=== PATIENT | female | born 1990 | race Caucasian/White ===

== ENCOUNTER 2024-06-14 00:59 | Inpatient (IN) | payer OTHER, SELFPAY ==
[2024-06-14] VITALS (210 sets, daily range): BP systolic 102–152; BP diastolic 48–112; PULSE 89–136; RESP 16; TEMP 37.2–37.7; O2SAT 10–100; BMI 30.8
--- NOTE | 2024-06-14 00:59 | LDADM ---
This patient, Sheba Arredondo, was admitted to Labor/Delivery/Recovery 106 on 06/14/24 at 00:59. Plans for labor, pain management and were discussed with patient. Patient/family oriented to hospital policies and general routines including ID bracelet, bed and alarms, visiting hours, pain management, procedures, bathroom and other care routines, personal items, smoking policy, room service/diet and guest tray routines, infant security routines, and visiting hours. Patient/Family are encouraged to report perceived risks to care and to ask questions if they do not understand what they are told or what they should do. See OBIX for further documentation.
[2024-06-14] MEDS: AMPICILLIN 2 GM/NS 100 ML 2 GM/100 ML BAG IVPB (03:32)
[2024-06-14] MEDS: LACTATED RINGERS 1,000 ML 125 ML IV CONT ×2 (03:32→10:00)
[2024-06-14 03:47] LABS: Basophils Percent Auto 0.2 % (0.2-1.2); Eosinophils Absolute Auto 0.1 K/mm3 (0-0.3); Eosinophils Percent Auto 1.2 % (0-4.4); Hematocrit 35.1 % (37.0-47.0); Hemoglobin 11.5 g/dL (12.0-15.0); Immature Granulocyte Absolute 0.06 K/mm3 (0.00-0.031); Immature Granulocyte Percent A 0.7 % (0-0.5); Lymphocytes Absolute Auto 1.54 K/mm3 (0.9-3.2); Lymphocytes Percent Auto 18.4 % (18.3-44.2); Mean Corpuscular HGB Conc 32.8 g/dl (32-36); Mean Corpuscular Hemoglobin 30.8 pg (26-34); Mean Corpuscular Volume 94.1 fl (80-100); Mean Platelet Volume 10.9 fl (7.4-10.4); Monocytes Absolute Auto 0.7 K/mm3 (0.1-0.6); Monocytes Percent Auto 8.1 % (2.6-8.5); Neutrophils Percent Auto 71.4 % (45.5-73.1); Platelet Count Result 182 k/mm3 (150-375); Red Blood Count 3.73 M/mm3 (4.2-5.4); Red Cell Distribution Width 14.2 % (11.5-14.5); White Blood Count 8.4 K/mm3 (4.5-10.0)
[2024-06-14 04:11] LABS: Rapid Plasma Reagin Non-Reactive (NonReactive)
[2024-06-14 04:41] LABS: HIV 1/2 Ab P24 Ag Result Negative (Negative)
--- NOTE | 2024-06-14 06:12 | WPDANESEPP ---
Anes - Eval Pre Procedure Procedure: Labor Epidural Date/Time: 06/14/24 06:12 Surgeon: Shana Preop Diagnosis: Labor Pain Pre Op Diagnosis: Leaking fluid Patient Data Age: 33 Gender: F Height: 1.6 m Weight: 79 kg Last Vital Signs Temp 37.2 C 06/14/24 04:30 Pulse 100 06/14/24 05:45 BP 126/82 06/14/24 05:45 O2 Del Method Room Air 06/14/24 04:11 Allergies Allergy/AdvReac Type Severity Reaction Status Date / Time No Known Allergies Allergy Verified 06/10/24 14:25 Home Medications Medication Instructions Recorded Confirmed Type prenat.vits,amanda,axe-pvmv-kbexi 1 tablet 06/10/24 History Laboratory Tests 06/14/24 03:25 WBC 8.4 K/mm3 (4.5-10.0) RBC 3.73 L M/mm3 (4.2-5.4) Hgb 11.5 L g/dL (12.0-15.0) Hct 35.1 L % (37.0-47.0) MCV 94.1 fl (80-100) MCH 30.8 pg (26-34) MCHC 32.8 g/dl (32-36) RDW 14.2 % (11.5-14.5) Plt Count 182 k/mm3 (150-375) MPV 10.9 H fl (7.4-10.4) Immature Gran % (Auto) 0.7 H % (0-0.5) Neut % (Auto) 71.4 % (45.5-73.1) Lymph % (Auto) 18.4 % (18.3-44.2) [place] % (Auto) 8.1 % (2.6-8.5) Eos % (Auto) 1.2 % (0-4.4) Baso % (Auto) 0.2 % (0.2-1.2) Lymph # (Auto) 1.54 K/mm3 (0.9-3.2) [place] # (Auto) 0.7 H K/mm3 (0.1-0.6) Eos # (Auto) 0.1 K/mm3 (0-0.3) Baso # (Auto) 0.0 K/mm3 (0.0-0.1) Abs Immat Gran (auto) 0.06 H K/mm3 (0.00-0.031) Absolute Neuts (auto) 6.0 K/mm3 (1.3-6.7) Absolute Nucleated RBC 0.000 K/mm3 (0.0-0.012) Nucleated RBC % 0.0 % (0.0-0.2) RPR Non-reactive (NonReactive) HIV 1&2 Ab/P24 Ag 4thGn Negative (Negative) Blood Type O Positive Antibody Screen Negative : gestational age (CARMINA 06/29/24) HCG: positive Patient hx anesthesia problems: none Family hx anesthesia problems: none Results Review: All pre-operative results and documents have been reviewed as part of the pre-operative evaluation. [facility] Family History Family History Mother Liver cancer Social History Social History Smoking status: Never smoker Second hand tobacco smoke exposure: No Substance use: never Do You Feel Safe in your Home?: Yes Lack of Transportation: No Lack of Food: Never True Current Housing: I Have Housing Concerned About Future Housing: No Difficulty Paying Gas/Electric Bills: No Difficulty Paying for Meds: No Currently Unemployed: No Education: High School Diploma/GED Difficulty w/ Childcare or Family Care: No Spiritual care concerns: No Exam Day of Procedure 06/14/24 06:12 Patient weight: normal Heart: regular rate and rhythm Lungs: normal air movement Airway: Mallampati scale class II Neurological: alert and oriented
[2024-06-14] MEDS: AMPICILLIN 1 GM/NS 50 ML 1 GM/50 ML BAG IVPB (07:32)
--- NOTE | 2024-06-14 07:55 | WPDHPUPDATE1 ---
History and Physical Update Update Date/Time: 06/14/24 07:55 33-year-old multiparous female who presents at term with spontaneous rupture membranes. She is in early labor. We are going to augment with Pitocin. She has a reassuring heart tone tracing. Expectant management, possible epidural History and Physical has been reviewed, including an updated exam of the patient. There are NO changes in the patient's condition. Risks, benefits, and alternatives have been discussed and questions answered. Patient agrees to proceed with procedure.
[2024-06-14] MEDS: OXYTOCIN 30 UNITS/NS 500 ML 30 UNITS/500 ML BAG IV CONT (10:40)
[2024-06-14] MEDS: ACETAMINOPHEN 500 MG TABLET 1000 MG PO (12:34)
--- NOTE | 2024-06-14 15:50 | PM.OBPRVD ---
OB - Vaginal Delivery Note Procedure Delivery date: 06/14/24 Delivery augmentation: Pitocin Delivery monitor: External FHT and External Uterine Episiotomy description: None Laceration Description: Perineal - 2nd Degree Delivery repair: vicryl Specimen: No Quantitative Blood Loss (ml): 200 Complications: No immediate complications [place] Baby Date of : 06/14/24 Time of : 15:37 Gestational Age by Date: 37 Weight (pounds): 8 Weight (ounces): 2 score one minute: 8 score five minutes: 9
[2024-06-14] MEDS: OXYTOCIN 30 UNITS/NS 500 ML 30 UNITS/500 ML BAG 125 UNITS IV CONT (16:13)
[2024-06-14] MEDS: ACETAMINOPHEN 325 MG TABLET 650 MG PO (18:16)
[2024-06-14] MEDS: IBUPROFEN 600 MG TABLET PO (18:16)
[2024-06-15 01:40] VITALS: BP 112/70; PULSE 87; RESP 16; TEMP 37.2; O2SAT 100
[2024-06-15] MEDS: ACETAMINOPHEN 325 MG TABLET 650 MG PO ×2 (04:41→22:33)
[2024-06-15] MEDS: IBUPROFEN 600 MG TABLET PO ×3 (04:41→22:33)
[2024-06-15 06:05] LABS: Hematocrit 34.2 % (37.0-47.0); Hemoglobin 10.6 g/dL (12.0-15.0)
[2024-06-15 08:30] VITALS: BP 126/87; PULSE 73; RESP 18; TEMP 36.5; O2SAT 97
--- NOTE | 2024-06-15 08:30 | PM.OBPNVD ---
OB - PN: Subj Subjective Date/time seen: 06/15/24 08:30 Patient comments: no complaints, pain well controlled, incisional pain, tolerating diet and flatus present OB - PN: Obj Data Labs 06/15/24 04:36 Labs: Laboratory Results - last 24 hr 06/15/24 04:36 Hgb 10.6 L Hct 34.2 L OB - PN A/P Plan day: 1 Plan: routine care Comments: No problems, routine care Time Spent With Patient Time: Total time spent is greater than 50% in coordination of care (as documented) at patient's floor/unit and/or counseling patient: Exam Const: General: comfortable, no acute distress and alert Resp: Effort & Inspection: normal respiratory effort Auscultation: no crackles, no rales and no rhonchi Cardio: Rate: regular rate Heart sounds: no click, no murmurs and no rubs GI: Inspection: non-distended GI Palp: No Tenderness to palpation present (GI) Auscultation: normal bowel sounds Other: Incision - CDI Extrem: General: normal to inspection, no pedal edema and no calf tenderness
[2024-06-15] MEDS: MULTIVIT/MIN/PREN/FOL AC/IRON TABLET 1 TAB PO (09:29)
[2024-06-15 19:18] VITALS: BP 126/84; PULSE 64; RESP 18; TEMP 36.9
[2024-06-16 08:30] VITALS: BP 118/81; PULSE 83; RESP 20; TEMP 36.4; O2SAT 98
[2024-06-16] MEDS: MULTIVIT/MIN/PREN/FOL AC/IRON TABLET 1 TAB PO (09:43)
[2024-06-16] MEDS: IBUPROFEN 600 MG TABLET PO (09:43)
--- NOTE | 2024-06-16 10:45 | P.DS_ITS ---
DS: Admitting Diagnosis Discharge Date June 16, 2024 Admitting Diagnosis Term DS: Discharge Diagnosis Discharge Diagnosis (1) Post term , delivered: Code(s): O48.0 - Post-term Status: Acute OB - DS: Summary OB Procedures : None OB Procedures Intrapartum: Spontaneous Vag Delivery OB Procedures: : None Peripartum Data Laceration Description: Perineal - 2nd Degree Episiotomy description: None Time Spent with Patient Time attestation: Total time spent providing and/or coordinating discharge services: Discharge Plan Discharge Discharging Clinician: Kojo Saldana Patient Disposition: Home, Self-Care Activity: pelvic rest Diet: regular Patient Instructions: Antibiotic Form Stand Alone Forms: General Discharge Information Follow-up/Referrals: Kojo Saldana MD [Physician] - Discharge Medications: Continued #2 Tablet 1 tablet Date of admission: 06/14/24 00:59 Primary Care Provider: PHYSICIAN,CONTROLLER OPERATIONS AND HR MANAGER Admitting Provider: Kojo Saldana Attending physician on admission: Kojo Saldana Condition: Stable
--- NOTE | 2024-06-16 10:45 | PM.OBPNVD ---
OB - PN: Subj Subjective Date/time seen: 06/16/24 10:45 Patient comments: no complaints, pain well controlled and tolerating diet OB - PN: Obj Data Labs 06/15/24 04:36 OB - PN A/P Plan day: 2 Plan: routine care and discharge home Time Spent With Patient Time: Total time spent is greater than 50% in coordination of care (as documented) at patient's floor/unit and/or counseling patient: Exam Const: General: comfortable and no acute distress Resp: Effort & Inspection: normal respiratory effort Auscultation: no rales, no rhonchi and no wheezes Cardio: Rate: regular rate Heart sounds: no click, no murmurs and no rubs GI: GI Palp: Yes Soft to palpation and No Tenderness to palpation present (GI) Auscultation: normal bowel sounds Extrem: General: normal to inspection, no pedal edema and no calf tenderness
[2024-06-18 08:33] VITALS: BP 131/79; PULSE 60; RESP 18; TEMP 36.5; O2SAT 100
== END 2024-06-16 12:35 | disposition home or self-care (01) | DRG 560 ==
LOC: ANHLDR 01:20 → ANHOB2 18:11
PROVIDERS: Admitting Provider Obstetrics & Gynecology; Visit Provider Obstetrics & Gynecology
DX: O70.1 Second degree perineal laceration during delivery (principal); Z3A.37 37 weeks gestation of pregnancy; Z37.0 Single live birth
CPT/HCPCS: 36415; 85014; 85018; 85025; 86592; 86703; 86850; 86900; 86901; A9270; G0432; J0290; J2590; J2795; J7120

== ENCOUNTER 2025-04-26 08:06 | Emergency (ER) | payer OTHER, SELFPAY ==
--- NOTE | ~2025-04-26 | XR_ITS ---
XR chest 2V 04/26/2025 08:46 Indication: Cough Procedure: 2 view chest Comparison: No prior studies for comparison. Findings: There is significant thoracic dextroscoliosis. There is right basilar airspace disease, com patible with pneumonia. Heart size normal. No significant effusion, edema or pneumothorax. Impression: 1: Right basilar airspace disease, compatible with pneumonia. 2: Scoliosis. Reviewed, dictated and finalized at location B. Impression: 1: Right basilar airspace disease, compatible with pneumonia. 2: Scoliosis.
--- OUTSIDE RECORDS SUMMARY | 2025-04-26 08:08 | XMS_ITS | Clinical Summary ---
[facility] Address [address] [place]: Epic Prelude [place] [address] Care Team Providers Care Refrigeration Unit Repairer Name Role Phone Claudio Marion MD Primary Care Provider [phone] Allergies No known active allergies Medications No known medications Active Problems Problem Noted Date Diagnosed Date Patellar subluxation, left, initial encounter ASCUS of cervix with negativ e high risk HPV- 2017 scanned under media 04/13/2023 Kidney stone 09/30/2019 Immunizations Immunization Administration Dates Next Due (ACTHIB/HIBERIX)(2 MOS-5 YRS /6 WKS-4 YRS) HAEMOPHILUS INFLUENZAE TYPE B VACCINE (HIB), PRP-T CONJUGATE, 4 DOSE, 0.5 ML IM 10/14/1990 (IPOL)(6 WKS AND UP) POLIOVI DELFINO VACCINE, INACTIVATED (IPV), 3 DOSE, SUBCUT OR IM 03/03/1995,04/01/1991,04/16/1990,02/05 (M-M-R II/PRIORIX)(12 MO UP) MEASLES, MUMPS AND RUBELLA VIRUS VACCINE, 0.5 ML IM/SUBCUT 03/03/1995,01/30/1991 (RECOMBIVAX HB/ENGERIX-B)(0- 19 YRS) HEPATITIS B VACCINE 5 MCG/0.5 ML OR 10 MCG/0.5 ML PED OR ADOL 3 DOSE (PF), IM 10/27/2004,04/14/2004,02/25/2004 (TDVAX)(7 YRS UP) TETANUS AN D DIPHTHERIA TOXOIDS, ADSORBED (2 LF OF TETANUS TOXOID AND 2 LF OF DIPHTHERIA TOXOID), 0.5ML (PF), IM 10/27/2004 Diptheria, Tetanus Toxoids, And Whole Cell Pertussis Vaccine (DTP), for intramuscular use 03/03/1995,04/01/1991,06/20/1990,04/16,02/05/1990 Influenza Seasonal Unspecifi ed Formulation IM 08/01/2023,08/11/2022,08/11/2022 Family History Medical History Relation Name Comments No Known Problems Father Cancer Mother luis m arredondo liver cancer fr om drinking heavily Relation Name Status Comments Father Alive Maternal Grandfather Maternal Grandmother Alive Mother luis m arredondo Social History Tobacco Use Types Packs/Day Years Used Date Smoking Tobacco: Never Passive Smoke Exposure: Never Smokeless Tobacco: Never Tobacco Cessation:Counseling Given: Not Answered Alcohol Use Standard Drinks/Week Comments Not Currently 0 (1 standard drink = 0.6 oz pure alcohol) drink maybe once a month if that Comments No Sex and Gender Information Value Date Recorded Sex Assigned at Not on file Legal Sex Female 10:59 PM [employer] Gender Identity Not on file Sexual Orientation Not on file Last Filed Vital Signs Vital Sign Reading Time Taken Comments Blood Pressure 125/86 07/26/2023 3:37 PM CDT Pulse 71 07/26/2023 3:37 PM CDT Temperature 36.9 C (98.5 F) 06/05/2023 11:47 AM CDT Respiratory Rate 17 07/26/2023 3:37 PM CDT Oxygen Saturation 98% 06/05/2023 11:47 AM CDT Inhaled Oxygen Concentration - - Weight 68 kg (150 lb) 07/26/2023 3:37 PM CDT Height 160 cm (5' 3) 07/26/2023 3:37 PM CDT Body Mass Index 26.57 07/26/2023 3:37 PM CDT Plan of Treatment Health Maintenance Due Date Last Done Comments DTAP/TDAP/TD VACCINES (6 - Tdap) 10/28/2004 10/27/2004, 03/03/1995, 04/01/1991, Additional history exists HPV/Cotest (21-29) 2010 HPV/Cotest (30-65) 2019 INFLUENZA VACCINE (#1) 2024 , 08/11/2022, 08/11/2022 COVID-19 Vaccine (3 - season) 2024 05/27/2021, 04/28/2021 Preventative Visit- Commercial 11/13/2024 03/09/2023, 12/09/2022 CERVICAL CANCER SCREENING 11/15/2024 PAP SMEAR 11/15/2024 11/15/2021 (Prev iously completed) HEPATITIS B VACCINES Completed 10/27/2004, 04/14/2004, 02/25/2004 HPV VACCINES Aged Out No longer eligi ble based on patient's age to complete this topic Insurance [facility] EPO Care Teams Refrigeration Unit Repairer Relationship Specialty Start Date End Date Claudio Marion MD [address] [place] [id number] PCP - General Family Practice 12/09/22
--- OUTSIDE RECORDS SUMMARY | 2025-04-26 08:08 | XMS_ITS | Data Portability ---
Author Organization [place] [facility] [place] Address [address] [place] [address] Assessment No assessment recorded. Plan of Treatment Reminders Order Date Submit Date Provider Last Modified By Organization Details Last Modified Time Details Appointments MED CHECK 2024 10:30A M Jn SALDANA MD Not available Not available Not available Injection DEPO 2024 01:00P M RN SCHEDULE Not available Not available Not available Lab None recorded. Referral None recorded. Procedures None recorded. Surgeries None recorded. Imaging None recorded. Medication Orders lamotrigi ne 25 mg tablet 2024 025 [facility] #[id number], [address], [place], [id number], 04/18/2025 12:22:12 Depo-Prov era 150 mg/mL intramusc ular syringe 2024 025 [email or web address] Not available 03/25/2025 18:09:23 Lexapro 20 mg tablet 2024 025 [facility] #[id number], [address], [place], [id number], 04/18/2025 11:55:54 Lexapro 10 mg tablet 2024 025 [email or web address] [id number], [address], [place], [id number], 01/15/2025 16:17:12 Depo-Prov era 150 mg/mL intramusc ular suspensio n 2024 025 [email or web address] Not available 04/18/2025 11:55:42 Patient TargetsNo targets recorded. Patient InstructionsNo instructions recorded. Reason for Referral None Reported. Results Created Date Observation Date Name Description Value Unit Range Abnormal Flag Note LastModifiedBy Organization Detail LastModifiedTime 11/26/1911/26/2024 CBC W/DIF F WBC 7.4 10'3/ uL 3.5-10 .5 Not Available [facility] (Lab) [address], [place], [address], 11/27/2024 08:46:37 11/26/1911/26/2024 CBC W/DIF F RBC 4.85 10'6/ uL (based on docume nted legal sex) 3.80-5 .20 Not Available [facility] (Lab) [address], [place], [address], 11/27/2024 08:46:37 11/26/19 25 11/26/2024 CBC W/DIF F HGB 14.8 g/dL (based on docume nted legal sex) 11.6-1 5.4 Not Available [facility] (Lab) [address], [place], [address], 11/27/2024 08:46:37 11/26/1911/26/2024 CBC W/DIF F HCT 45.9 % (based on docume nted legal sex) 34.0-4 5.0 high Not Available [facility] (Lab) [address], [place], [address], 11/27/2024 08:46:37 11/26/1911/26/2024 CBC W/DIF F MCV 94.6 fL 80.0-9 9.0 Not Available [facility] (Lab) [address] [place], [address], 11/27/2024 08:46:37 11/26/19 25 11/26/2024 CBC W/DIF F MCH 30.5 pg 27.0-3 4.0 Not Available [facility] (Lab) [address], [place], [address], 11/27/2024 08:46:37 11/26/19 25 11/26/2024 CBC W/DIF F MCHC 32.2 g/dL 32.0-3 5.5 Not Available [facility] (Lab) [address], [place], [address], 11/27/2024 08:46:37 11/26/19 25 11/26/2024 CBC W/DIF F RDW 12.2 % 11.0-1 5.0 Not Available [facility] (Lab) [address], [place], [address], 11/27/2024 08:46:37 11/26/19 25 11/26/2024 CBC W/DIF F plt 230 10'3/ uL 150-40 0 Not Available [facility] (Lab) [address], [place], [address], 11/27/2024 08:46:37 11/26/19 25 11/26/2024 CBC W/DIF F MPV 12.4 fL 8.8-12 .1 high Not Available [facility] (Lab) [address], [place], [address], 11/27/2024 08:46:37 11/26/19 25 11/26/2024 CBC W/DIF F neutrophils 68.1 % 34.0-7 3.0 Not Available [facility] (Lab) [address], [place], [address], 11/27/2024 08:46:37 11/26/19 25 11/26/2024 CBC W/DIF F lymphocytes 22.7 % 15.0-5 0.0 Not Available [facility] (Lab) [address], [place], [address], 11/27/2024 08:46:37 11/26/19 25 11/26/2024 CBC W/DIF F monocytes 7.6 % 1.0-15 .0 Not Available [facility] (Lab) [address], [place], [address], 11/27/2024 08:46:37 11/26/19 25 11/26/2024 CBC W/DIF F eosinophils 0.8 % 0.0-8. 0 Not Available [facility] (Lab) [address], [place], [address], 11/27/2024 08:46:37 11/26/19 25 11/26/2024 CBC W/DIF F basophils 0.5 % 0.0-2. 0 Not Available [facility] (Lab) [address], [place], [address], 11/27/2024 08:46:37 11/26/19 25 11/26/2024 CBC W/DIF F immature granulocytes 0.3 % no define d refere nce range Immat ure Granu locyt es (IG) repre sents autom ated enume ratio n of Metam yeloc ytes, Myelo cytes and Promy elocy monica when IG is < 5%. Blast s are not inclu ded in IG and repor lily separ ately if prese nt. Not Available [facility] (Lab) [address], [place], [address], 11/27/2024 08:46:37 11/26/1911/26/2024 CBC W/DIF F absolute neutrophils 5.0 10'3/ uL 1.5-8. 0 Not Available [facility] (Lab) [address], [place], [address], 11/27/2024 08:46:37 11/26/19 25 11/26/2024 CBC W/DIF F absolute lymphocytes 1.7 10'3/ uL 1.0-4. 0 Not Available [facility] (Lab) [address], [place], [address], 11/27/2024 08:46:37 11/26/19 25 11/26/2024 CBC W/DIF F absolute monocytes 0.6 10'3/ uL 0.2-1. 0 Not Available [facility] (Lab) [address], [place], [address], 11/27/2024 08:46:37 11/26/19 25 11/26/2024 CBC W/DIF F absolute eosinophils 0.1 10'3/ uL 0.0-0. 6 Not Available [facility] (Lab) [address], [place], [address], 11/27/2024 08:46:37 11/26/19 25 11/26/2024 CBC W/DIF F absolute basophils 0.0 10'3/ uL 0.0-0. 3 Not Available [facility] (Lab) [address], [place], [address], 11/27/2024 08:46:37 11/26/1911/26/2024 CBC W/DIF F absolute immature granulocytes 0.0 10'3/ uL 0.00-0 .10 Refer ence range s for nonbi nary/ inter sex or unspe cifie d gende r patie nts have not been estab lishe d. Pleas e refer to the [facility] table for range s estab lishe d for cisge nder patie nts and evalu ate in the clini chris rhonda xt of the indiv idual patie nt: https ://bisi miranda book. nm.or g/Gen derX Not Available [facility] (Lab) [address], [place], [address], 11/27/2024 08:46:37 11/26/1911/26/2024 CMP(C OMPRE HENSI VE METAB OLIC PANEL ) sodium 139 mmol/ L 133-14 6 Not Available [facility] (Lab) [address], [place], [address], 11/27/2024 08:46:38 11/26/19 25 11/26/2024 CMP(C OMPRE HENSI VE METAB OLIC PANEL ) potassium 3.9 mmol/ L 3.5-5. 1 Not Available [facility] (Lab) [address], [place], [address], 11/27/2024 08:46:38 11/26/19 25 11/26/2024 CMP(C OMPRE HENSI VE METAB OLIC PANEL ) chloride 104 mmol/ L 98-107 Not Available [facility] (Lab) [address], [place], [address], 11/27/2024 08:46:38 11/26/19 25 11/26/2024 CMP(C OMPRE HENSI VE METAB OLIC PANEL ) carbon dioxide 26 mmol/ L 21-31 Not Available [facility] (Lab) [address], [place], [address], 11/27/2024 08:46:38 11/26/19 25 11/26/2024 CMP(C OMPRE HENSI VE METAB OLIC PANEL ) anion gap 9 mmol/ L 4-13 Not Available [facility] (Lab) [address], [place], [address], 11/27/2024 08:46:38 11/26/19 25 11/26/2024 CMP(C OMPRE HENSI VE METAB OLIC PANEL ) blood urea nitrogen 12 mg/dL 7-25 Not Available [facility] (Lab) [address], [place], [address], 11/27/2024 08:46:38 11/26/19 25 11/26/2024 CMP(C OMPRE HENSI VE METAB OLIC PANEL ) creatinine 0.74 mg/dL 0.60-1 .30 Not Available [facility] (Lab) [address], [place], [address], 11/27/2024 08:46:38 11/26/19 25 11/26/2024 CMP(C OMPRE HENSI VE METAB OLIC PANEL ) egfrcr (CKD-epi 2021) >90 mL/mi n/1.7 3_m2 >=60 Not Available [facility] (Lab) [address], [place], [address], 11/27/2024 08:46:38 11/26/19 25 11/26/2024 CMP(C OMPRE HENSI VE METAB OLIC PANEL ) calcium 9.9 mg/dL 8.3-10 .5 Not Available [facility] (Lab) [address], [place], [address], 11/27/2024 08:46:38 11/26/19 25 11/26/2024 CMP(C OMPRE HENSI VE METAB OLIC PANEL ) glucose 100 mg/dL 70-100 Not Available [facility] (Lab) [address], [place], [address], 11/27/2024 08:46:38 11/26/19 25 11/26/2024 CMP(C OMPRE HENSI VE METAB OLIC PANEL ) protein, total 7.2 g/dL 6.4-8. 3 Not Available [facility] (Lab) [address], [place], [address], 11/27/2024 08:46:38 11/26/19 25 11/26/2024 CMP(C OMPRE HENSI VE METAB OLIC PANEL ) albumin 4.8 g/dL 3.5-5. 0 Not Available [facility] (Lab) [address], [place], [address], 11/27/2024 08:46:38 11/26/19 25 11/26/2024 CMP(C OMPRE HENSI VE METAB OLIC PANEL ) ALT 26 units /L 9-43 Not Available [facility] (Lab) [address] [place], [address], 11/27/2024 08:46:38 11/26/19 25 11/26/2024 CMP(C OMPRE HENSI VE METAB OLIC PANEL ) alkaline phosphatase 82 units /L 34-104 Not Available [facility] (Lab) [address], [place], [address], 11/27/2024 08:46:38 11/26/19 25 11/26/2024 CMP(C OMPRE HENSI VE METAB OLIC PANEL ) AST 13 units /L 13-39 Not Available [facility] (Lab) [address], [place], [address], 11/27/2024 08:46:38 11/26/19 25 11/26/2024 CMP(C OMPRE HENSI VE METAB OLIC PANEL ) bilirubin, total 1.1 mg/dL 0.2-1. 2 Not Available [facility] (Lab) [address], [place], [address], 11/27/2024 08:46:38 11/26/19 25 11/26/2024 LIPID PANEL ,AMA (LDL- CALC) total cholesterol 175 mg/dL 0-199 Not Available [facility] (Lab) [address], [place], [address], 11/27/2024 08:46:38 11/26/1911/26/2024 LIPID PANEL ,AMA (LDL- CALC) triglyceride s 51 mg/dL 0-150 NCEP Refer ence Value s for Trigl yceri amanda: Candida l: <150 mg/dL Borde rline High: 150 - 199 mg/dL High: 200 - 499 mg/dL Very High: >/= 500 mg/dL Not Available [facility] (Lab) [address], [place], [address], 11/27/2024 08:46:38 11/26/1911/26/2024 LIPID PANEL ,AMA (LDL- CALC) HDL cholesterol 52 mg/dL >40 Not Available [facility] (Lab) [address] [place], [address], 11/27/2024 08:46:38 11/26/19 25 11/26/2024 LIPID PANEL ,AMA (LDL- CALC) LDL cholesterol 110 mg/dL 0-99 high Cutof f value s recom rosario d by the Natio nal Diamante stero l Educa tion Progr am: SCOTT ABLE: Diamante stero l <200 mg/dL LDL <100 mg/dL BORDE RLINE : Diamante stero l 200-2 39 mg/dL LDL 101-1 59 mg/dL HIGHE R RISK: Diamante stero l >240 mg/dL LDL >160 mg/dL , HDL <40 mg/dL Not Available [facility] (Lab) [address], [place], [address], 11/27/2024 08:46:38 11/26/1911/26/2024 LIPID PANEL ,AMA (LDL- CALC) non-HDL cholesterol 123 mg/dL no refere nce range A reaso nable goal for non-H DL diamante stero l is one that is 30 mg/dL highe r than the LDL diamante stero l goal. Not Available [facility] (Lab) [address], [place], [address], 11/27/2024 08:46:38 11/26/1911/26/2024 LIPID PANEL ,AMA (LDL- CALC) chol/HDL ratio 3.4 . 0.0-5. 0 On March 07, 2023, [facility] labor atori es frank ed the equat ion for calcu latin g estim ated low-d ensit y lipop rotei n-cho leste rol (LDL- C) from the Ashleigh kebede equat ion to the Betty ashley/Bebeto dumont equat ion. This new equat ion is only valid for lipid panel s with trigl yceri amanda < 400 mg/dL . Studi es have demon strat ed that this new equat ion will impro ve the accur acy of LDL-C , espec ially in scena venegas when LDL-C redd ntrat ions are relat ively low (< 100 mg/dL ), trigl yceri amanda are eleva lily, or patie nt is non-f astin g. Refer ences : - Gavin Kirk, Jadon Quinones , Tho moore, Marcos Aparicio, Marcos murillo, Sina rendon , and Cesar Parikh . 2013. Comp ariso n of a Novel Metho d vs the Fried delio Equat ion for Estim ating Low-D ensit y Lipop rotei n Diamante stero l Level s from the Stand raza Lipid Profi le. RUFINO: The Journ al of the Ameri can Medic al Assoc iatio n 310 (19): 2060- . - Dexter vidal V, Tamar J, Bird ar A, Cathy M, Katty marrero R, Wood ar E, Nahomi rendon RS, Jl SR, Betty ashley SS. Fast ing Versu s Nonfa sting and Low-D ensit y Lipop rotei n Diamante stero l Accur acy. Circu latio n. 2017Nov 14;137 (1):1 0-19. Not Available [facility] (Lab) [address], [place], [address], 11/27/2024 08:46:38 11/26/19 25 11/26/2024 TSH, REFLE X FREE T4 TSH 1.92 uIU/m L 0.30-5 .33 Not Available [facility] (Lab) [address] , [place], [address], 11/27/2024 08:46:39 11/26/19 25 11/26/2024 VITAM IN D, 25-OH (TOTA L D2/D3 ) vitamin D, 25-hydroxy, total 24.4 NG/mL 30.0-1 00.0 low Sugge stive of Defic iency : <20 ng/mL Sugge stive of Insuf ficie ncy: 20-29 ng/mL Sugge stive of Suffi cienc y: 30-10 0 ng/mL Sugge stive of Toxic ity: >150 ng/mL Not Available [facility] (Lab) [address] , [place], [address], 11/27/2024 08:46:39 11/26/19 25 11/26/2024 IMAGE GUIDE D PAP AND HPV REGAR DLESS image guided Pap, HPV regardless of Pap result SEE RESULT S BELOW CASE REPOR T: Cytol ogy Gynec ologi chris Repor t Case: [id number] Autho shikha evans Provi lakisha: Kamilah Saldana MD Colle cted: 11/26 1026 Order ing Locat ion: [place] [facility] Recei erica: 11/27 0123 First Scree n: Susan Fan, CT Rescr een: Chela Parikh, CT Speci men: Justen ingram Pap - Image d, Cervi x STATE MENT OF ADEQU ACY: Satis facto ry for evalu ation Trans forma tion zone compo nent prese nt ----- ----- ----- ----- ----- ----- ----- ----- ----- ----- ----- ----- ----- ----- ----- ----- ----- ---- FINAL DIAGN OSIS: Negat savage for Intra epith elial Leslauren ashley or Jadyn luis (NIL) . Elect samson mathews d by Chela Parikh , CT on 2024 at 1256 HEATING ME[employer]IC ----- ----- ----- ----- ----- ----- ----- ----- ----- ----- ----- ----- ----- ----- ----- ----- ----- ---- HPV RESUL TS: HPV mRNA E6/E7 : No HPV mRNA Detec lily NOTE: This high risk HPV mRNA assay detec ts fourt een high- risk HPV types (16, 18, 31, 33, 35, 39, 45, 51, 52, 56, 58, 59, 66, 68) witho ut diffe renti ation . COMME NT: This speci men was revie wed by a Cytot echno logis t and/o r Patho logis t (as indic ated in this repor t) after evalu ation using the Thinp rep Imagi ng Syste m. CLINI CHRIS INFOR MATIO N: Menst rual Statu s: LMP (if appli cable ): Clini chris Histo ry/Pr eviou s Pap: Type of Neopl juliet (if appli cable ): Signi fican t Clini chris Findi ngs: Other Histo ry: Hormo katya (if appli cable ): PAP EDUCA ULISES L NOTE: The Pap Test is a scree juan jose test with an inher ent false negat savage rate. Liqui d-bas ed sampl ing may decre ase, but will not elimi tramaine, false negat savage resul ts. A negat savage resul t does not precl ude the prese nce and/o r devel opmen t of disea se, since the prese nce of abnor mal cells in the sampl e depen ds on the locat ion of the lesio n and sampl ing techn ique. Sandeep nued regul ar scree juan jose is the best metho d of cance r preve ntion . If repor lily cytol ogic findi ng do not corre late with physi chris and/o r histo rical findi ngs, furth er inves tigat ion is recom rosario d, as clini marine solares nted. Not Available [facility] (Lab) [address], [place], [address], 12/03/2024 14:00:04 Result Notes None recorded. Problems Name Problem SNOMED Code Status Onset Date Resolution Date Notes Provider Name and Address Organization Details Recorded Time Pregnanc y 88130107 Completed 202306/17/2024 Tomer Ulrich [facility] 4 12:38:31 Large for gestatio n age fetus [id number] Completed predicte d 9 lb at 39 weeks Moni Stein [facility] 19:38:39 Problem Notes None recorded. Procedures Surgical History Date Name Laterality Status Provider Name and Address Organization Details Recorded Time 11/26/2024 Date of Last Pap Smear completed Opal Bertin [facility] 04/18/2025 11:58:26 Imaging Results None recorded. Procedure Notes None recorded. Medical Equipment None Reported. Allergies No known drug allergies Medications Name Sig Start Date Stop Date Status Note LastModified by Organization Details LastModified Time ofloxacin 0.3 % eye drops INSTILL 2 DROPS INTO BOTH EYES FOUR TIMES DAILY FOR 7 DAYS FOR INFECTIOU S PROCESS 03/25 completed Not Available Not Available Not Available fluconazole 150 mg tablet TAKE 1 TABLET BY MOUTH FOR 1 DAY DIRECTED 05/10 completed Not Available Not Available Not Available lamotrigine 25 mg tablet Take 2 tablets twice a day by oral route. 2024 active Not Available Not Available Not Avai lable amoxicillin 875 mg tablet TAKE 1 TABLET BY MOUTH EVERY 12 HOURS FOR 10 DAYS 05/10 completed Not Available Not Available Not Available Depo-Lung Splitter a 150 mg/mL intramuscul ar suspension Inject 1 mL every 3 months by intramusc ular route. 04/18 completed Not Available Not Available Not Available Depo-Lung Splitter a 150 mg/mL intramuscul ar syringe Inject 1 mL every 3 months by intramusc ular route. 2024 active Not Available Not Available Not Avai lable escitalopra m 10 mg tablet TAKE 1 TABLET BY MOUTH EVERY DAY active Not Available Not Available No t Available escitalopra m 20 mg tablet TAKE 1 TABLET BY MOUTH EVERY DAY 04/18 completed Not Available Not Available Not Available Vitamin active Not Available Not Available Not Available Vitamin D2 active Not Available Not Av ailable Not Available Vitals Date Recorded Body height Body mass index (BMI) Body weight Systolic blood pressure Diastolic blood pressure Provider Name and Address Organization Details Last Updated DateTime 12/27/2024 160.02 cm 25.9 kg/m2 50998.49 g 134 mm[Hg] 84 mm[Hg] ELIZABETH Dominguez [facility] 15:32:48 Date Recorded Body height Body mass index (BMI) Body weight Systolic blood pressure Diastolic blood pressure Provider Name and Address Organization Details Last Updated DateTime 01/15/2025 160.02 cm 26 kg/m2 71143.36 g 144 mm[Hg] 88 mm[Hg] Lorraine Ruano [facility] 5 15:43:28 Date Recorded Body height Body mass index (BMI) Body weight Systolic blood pressure Diastolic blood pressure Provider Name and Address Organization Details Last Updated DateTime 03/04/2025 160.02 cm 25.2 kg/m2 99505.12 g 126 mm[Hg] 84 mm[Hg] Opal [facility] 5 13:13:51 Date Recorded Body height Body mass index (BMI) Body weight Systolic blood pressure Diastolic blood pressure Provider Name and Address Organization Details Last Updated DateTime 03/24/2025 160.02 cm 25.7 kg/m2 43573.89 g 122 mm[Hg] 85 mm[Hg] Opal [facility] 5 15:12:16 Date Recorded Body height Body mass index (BMI) Body weight Systolic blood pressure Diastolic blood pressure Provider Name and Address Organization Details Last Updated DateTime 04/18/2025 160.02 cm 25.7 kg/m2 16464.89 g 131 mm[Hg] 85 mm[Hg] [facility] 5 11:55:34 Social History Question Answer Notes LastModified by Organizat ion Details LastModified Time Tobacco Smoking Status Never Smoker [facility] 11/16/2023 12:11:29 How Many Years Have You Consumed Alcohol? 8 Information not available 11/16/2023 Are You Blind Or Do You Have Difficulty Seeing? No Information n ot available 11/16/2023 What Is Your Level Of Caffeine Consumption? Occasional Information not available 11/16/2023 How Much Tobacco Do You Chew? None Information not available 11/16/2023 In The 14 Days Before Symptom Onset, Have You Had Close Contact With A Laboratory-confirm ed COVID-19 While That Case Was Ill? No Information n ot available 11/16/2023 In The 14 Days Before Symptom Onset, Have You Had Close Contact With A Person Who Is Under Investigation For COVID-19 While That Person Was Ill? No Information not available 11/16/2023 Have You Been To An Area Known To Be High Risk For COVID-19? No Information not available 11/16/2023 Are You Deaf Or Do You Have Serious Difficulty Hearing? No Information not available 11/16/2023 What Type Of Diet Are You Following? REGULAR Information n ot available 03/25/2024 What Is The Highest Grade Or Level Of School You Have Completed Or The Highest Degree You Have Received? [id number] Information not available 11/16/2023 Are There Any Guns Present In Your Home? No Information not available 11/16/2023 Do You Use Protection During Sex? No Information not available 11/16/2023 Do You Use Your Seat Belt Or Car Seat Routinely? Yes Information not available 11/16/2023 Are You Sexually Active? Yes [email or web address] Information not available 03/25/2024 Do You Have Smoke And Carbon Monoxide Detectors In Your Home? Yes Information not available 11/16/2023 How Much Tobacco Do You Smoke? No Information not available 11/16/2023 Do You Use Sunscreen Routinely? Yes Information not available 11/16/2023 Have You Used IV Drugs? No Information not available 11/16/2023 Do You Have Difficulty Walking Or Climbing Stairs? No [email or web address] Information not available 03/25/2024 Sex: Unknown Functional Status Question Answer Note LastModified by Organizat ion Details LastModified Time Do you use any illicit or recreational drugs? No Information not available 11/16/2023 What is your level of alcohol consumption? None [email or web address] Information not available 03/25/2024 Are you currently employed? Yes [email or web address] Information not available 03/25/2024 Are you able to walk? [email or web address] Information not available 11/16/2023 Are you able to care for yourself? Yes Information not available 03/25/2024 What is your occupation? [employer] [email or web address] Information not available 03/25/2024 Do you have difficulty dressing or bathing? No [email or web address] Information not available 03/25/2024 What is your exercise level? Moderate Information not available 11/16/2023 Mental Status Question Answer Note LastModified by Organization D etails LastModified Time Do you feel stressed (tense, restless, nervous, or anxious, or unable to sleep at night)? [id number] Information not available 11/16/2023 Family History Relationship Description Onset Age of this Age Resolved Age Notes LastModified by Organization Details LastModified Time Mother Asthma Not available 11/16/2023 12:09:17 Mother Kidney disease Not available 2023 12:09:17 Medical History Condition Response Anxiety Disorder Y Depression/ depression Y No Past Medical History Y Gynecological History Statement/Question Response Abnormal Pap Y Date of LMP On BCP's at Conception? N N Was last menstrual period normal Y STIs/STDs N HPV Vaccine N Current Control Method Depo-Lung Splitter a Age at First Child 21 Date of control 12/28/2022 Are cycles usually normal Y Sexually Active? Y Menses Monthly N Age of first menstrual cycle 17 Date of Last Pap Smear 11/26/2024 Sexual Problems? N LMP Unknown N Obstetrics History GPAL:G 2 P 2 0 0 2 Type Value Full Term 2 Living 2 Total 2 Past Encounters Encounter ID Performer Location Encounter Start Date Encounter Closed Date Diagnosis/Indication Diagnosis SNOMED-CT Code Diagnosis ICD10 Code Diagnosis Note [id number] Kojo Saldana MD [facility] [address] [address] 11/16/2023 11:18:34 11/16/2023 11:48:25 screening [id number] Z36.87 Z3A.01 [id number] Kojo Saldana MD [facility] [address] [address] 11/16/2023 11:19:31 11/16/2023 13:05:44 Amenorrhea [id number] N91.2 Patient is a 32-year-ol d 2 para 1001 who presents for amenorrhea . She is a positive test and a ultrasound to rule 7 week gestation. She was examined. A Pap smear was performed. Was all normal. We talked about care. Talked about her ultrasound today. We talked about 12 week ultrasound . Talked about her obstetric, medical, surgical and social histories. She will return in 5 weeks to begin routine care. We spent over 20 minutes face-to-fa ce. More than 50% was counseling . She is given precaution s on diet, exercise, over-the-c ounter medication s in . [id number] Kojo Saldana MD [facility] [address],[place] [address] 12/20/2023 13:46:02 12/20/2023 14:22:32 screening [id number] Z36.82 Z3A.12 [id number] MD [facility] [address],[place] [address] 12/20/2023 13:47:08 12/20/2023 17:03:32 Routine care [id number] Z34.90 [id number] MD [facility] [address],[place] [address] 01/19/2024 15:50:18 01/19/2024 16:39:17 screening [id number] Z36.89 Routine an tenatal care [id number] Z34.90 [id number] Kojo Saldana MD [facility] [address],[place] [address] 02/23/2024 14:16:16 02/23/2024 15:59:09 screening for malformation [id number] Z36.3 Z3A.21 [id number] Kjoo Saldana MD [facility] [address],[place] [address] 02/23/2024 14:16:33 02/23/2024 16:19:06 Routine care [id number] Z34.90 [id number] Kojo Saldana MD [facility] [address],[place] [address] 03/25/2024 10:12:16 03/25/2024 11:03:53 Routine care [id number] Z34.90 [id number] MD [facility] [address],[place] [address] 04/10/2024 16:04:17 04/10/2024 16:58:07 Routine care [id number] Z34.90 [id number] KEITH ARCHER MD [facility] [address],[place] [address] 04/26/2024 14:36:43 04/26/2024 15:25:04 Routine care [id number] Z34.83 [id number] MD [facility] [address],[place] [address] 05/10/2024 15:15:29 05/10/2024 16:08:01 Routine care [id number] Z34.90 [id number] MD [facility] [address],[place] [address] 05/22/2024 14:26:16 05/22/2024 15:37:50 Large for gestation age fetus [id number] O36.63X0 Z3A.34 [id number] MD [facility] [address],[place] [address] 05/22/2024 15:04:39 05/22/2024 16:15:42 Routine care [id number] Z34.90 [id number] MD [facility] [address],[place] [address] 06/05/2024 16:00:30 06/05/2024 16:42:23 Routine care [id number] Z34.90 [id number] MD [facility] [address],[place] [address] 06/10/2024 15:50:19 06/10/2024 16:33:28 Large for gestation age fetus [id number] O36.63X0 Z3A.37 [id number] MD [facility] [address],[place] [address] 06/10/2024 15:50:32 06/10/2024 17:05:25 Routine care [id number] Z34.90 [id number] Kojo Saldana MD [facility] [address],[place] [address] 07/12/2024 10:36:50 07/12/2024 11:58:50 state [id number] Z39.2 This patient is a 33-year-ol d female presents for follow-up. The baby is doing well. The baby is breastfeed ing. The mother is doing well. Her mood is good. She stopped bleeding. She has not had sex. She would like to start Depo-Prove ra. She will return in 2-3 months for well-woman exam. [id number] Kojo Saldana MD [facility] [address],[place] [address] 07/13/2024 11:10:41 07/13/2024 11:14:56 state [id number] Z39.2 This patient is a 33-year-ol d female presents for follow-up. The baby is doing well. The baby is breastfeed ing. The mother is doing well. Her mood is good. She stopped bleeding. She has not had sex. She would like to start Depo-Prove ra. She will return in 2-3 months for well-woman exam. [id number] Kojo Saldana MD [facility] [address],[place] [address] 10/01/2024 14:53:28 10/01/2024 15:16:15 state [id number] Z39.2 This patient is a 33-year-ol d female presents for follow-up. The baby is doing well. The baby is breastfeed ing. The mother is doing well. Her mood is good. She stopped bleeding. She has not had sex. She would like to start Depo-Prove ra. She will return in 2-3 months for well-woman exam. [id number] Kojo Saldana MD [facility] [address],[place] [address] 10/22/2024 15:58:03 10/22/2024 19:39:13 [id number] Kojo Saldana MD [facility] [address],[place] [address] 11/26/2024 09:21:54 11/26/2024 10:11:05 Gynecologic examination [id number] Z11.51 Z11.3 Z11.8 Annual gynecologi chris exam performed. Patient will come back in a year unless there are new symptoms. Suggest Calcium with Vitamin D if not eating in diet. Patient advised to get annual flu shot. Recommend yearly physicals and preform monthly breast exams. Genetic testing is available for patients with family history of cancer. Engage in safe sexual practices, use condoms. Encouraged to have daily exercise. Avoid tobacco and illicit drugs, moderation of alcohol. If BMI greater than 25 dietary consult advised. If you have any questions please call or email. laboratory evaluation - today [id number] Kojo Saldana MD [facility] [address],[place] [address] 12/27/2024 15:19:59 12/27/2024 15:38:06 Contraception care [id number] Z30.40 [id number] Kojo Saldana MD [facility] [address],[place] [address] 01/15/2025 14:55:03 01/15/2025 16:26:05 Mixed anxiety and depressive disorder [id number] F41.8 34-year-ol d female experienci ng severe agitation and anxiety. Patient denies suicidalit y or risk of harming others. She reports mood lability. Sadness, crying. She reports poor sleep and fatigue. She has some significan t stressors that include a new baby and work. We agreed to treat for anxiety. She was given prescripti on for an SSRI. She was informed of the risks, benefits, and alternativ es. She was given precaution s and instructio ns. I spent over 20 minutes with the patient. I spent over 20 minutes on her care in total. [id number] Kojo Saldana MD [facility] [address],[place] [address] 03/04/2025 12:50:09 03/05/2025 10:12:53 Mixed anxiety and depressive disorder [id number] F41.9 F32.A 34-year-ol d female presents for follow-up on anxiety and depression . She was started on 10 mg of Lexapro. Her symptoms are improved. She feels that they could be better. She continues to have some anxiety and depression . Her agitation is much improved. We agreed to increase her dose. She will follow up in 1 month. We talked about the risks, benefits, and alternativ es to the medication . She was given precaution s and instructio ns. She will follow-up in 1 month [id number] Kojo Saldana MD [facility] [address],[place] [address] 03/24/2025 13:57:22 03/25/2025 15:34:25 Contraception care management [id number] Z30.9 [id number] Kojo Saldana MD [facility] [address],[place] [address] 04/18/2025 10:56:09 04/18/2025 12:23:07 Anxiety [id number] F41.9 34-year-ol d female who presents for follow-up on anxiety, depression , agitation. She was being treated with Lexapro. We started at 10 mg later increased to 20 mg. She went down to 10. She has had worsening anxiety. Her anxiety was better at 20. She is back to 10 and is still agitated and anxious. We are going to add lamotrigin e. I prescribed the medication to her. She understand s the risks and benefits. She understand s the risks, benefits, and alternativ es. She is given precaution s and instructio ns. Health Concerns Section Related Observation LastModified by Organization Detai ls LastModified Time None Recorded Concern Status LastModified by Organization Details LastModified Time None Recorded Advance Directives Directive None Recorded Payers Insurance Date Sequence Insurance Name Policy Number Policy Marie Covered Member ID Marie Member ID Guarantor Name 10/01/2024 1 [place] [employer]PARTMENT OF PUBLIC [employer] Sheba Arredondo [id number] Sheba Arredondo 04/21/2025 1 [facility] - DOS ON OR AFTER 21 (MEDICAID REPLACEMENT - HMO) Sheba Arredondo [id number] Joaquimvladimir Arnulfo Notes Date Note Type Note Provider Name and Address Organization Details Recorded Time 01/15/2025 text/html 34-year-old dora morales experiencing severe agitation and anxiety. Patient denies suicidality or risk of harming others. She reports mood lability. Sadness, crying. She reports poor sleep and fatigue. She has some significant stressors that include a new baby and work. We agreed to treat for anxiety. She was given prescription for an SSRI. She was informed of the risks, benefits, and alternatives. She was given precautions and instructions. I spent over 20 minutes with the patient. I spent over 20 minutes on her care in total. Kojo Saldana MD [address], [place], [address], [facility] 01/15/2025 16:25:35 03/04/2025 text/html 34-year-old dora morales presents for follow-up on anxiety and depression. She was started on 10 mg of Lexapro. Her symptoms are improved. She feels that they could be better. She continues to have some anxiety and depression. Her agitation is much improved. We agreed to increase her dose. She will follow up in 1 month. We talked about the risks, benefits, and alternatives to the medication. She was given precautions and instructions. She will follow-up in 1 month Kojo Saldana MD [address], [place], [address], [facility] 03/05/2025 10:02:37 04/18/2025 text/html 34-year-old dora morales who presents for follow-up on anxiety, depression, agitation. She was being treated with Lexapro. We started at 10 mg later increased to 20 mg. She went down to 10. She has had worsening anxiety. Her anxiety was better at 20. She is back to 10 and is still agitated and anxious. We are going to add lamotrigine. I prescribed the medication to her. She understands the risks and benefits. She understands the risks, benefits, and alternatives. She is given precautions and instructions. Kojo Saldana MD [address], [place], [address], [facility] 04/18/2025 12:22:15 OBGyn Episode Ob Episode Information Episode Created Date Number of Fetuses Patient Bloodtype Patient rh Status Prepregnancy Weight lbs Domestic Partner Domestic Partner Phone Father Name Junior [employer] Administrator Status 11/16/19 24 1 CLOSED Fetus Data First Name Last Name Admitted to NICU Weight (g) Sex Living Outcome Pediatric Complications Fetus ID Race Codes Race Delivery Type 2296.08 2704 M Full Term [id number] Vaginal Delivery Miguel Calculation Initial Miguel Date Initial Exam Date Initial Exam Provider Initial Ultrasound Date Last Menstrual Period Date Ultra Sound Weeks Gestation 0 Eighteen To Twenty Week Miguel Update Ultra Sound Date Fundal Height At Umbil Quickening Date Ultra Sound Latest Weeks Gestation Final Miguel Confirmed By Final Miguel Confirmed Date Final Miguel Date Ultra Sound Latest Days Gestation 0 0 Menstrual History Last Menstrual Date Menses Monthly On Bcp Conception Prior Menses Frequency Hcg Plus Date Menarche Onset Age Delivery Information Delivery Date Delivery Type Labor Anesthesia Weeks Gestation Incision Type Labor Labor Length Hrs Delivered By Post Complications Tubal Sterilization Discharge Date Comments 2 41 Nitin Discharge Information Feeding Method Contraceptive Method Maternal HG B and HCT Levels Ob Episode Information Episode Created Date Number of Fetuses Patient Bloodtype Patient rh Status Prepregnancy Weight lbs Domestic Partner Domestic Partner Phone Father Name Junior Linux Systems Administrator Status 12/20/19 24 1 143 CLOSED Fetus Data First Name Last Name Admitted to NICU Weight (g) Sex Living Outcome Pediatric Complications Fetus ID Race Codes Race Delivery Type 3689.97 092 M true Full Term [id number] Vaginal Delivery Problems Problem Notes Problem Name Start Date End Date Resolution Snomed Code Not e Large for gestation age fetus [id number] predicted 9 lb at 39 weeks Miguel Calculation Initial Miguel Date Initial Exam Date Initial Exam Provider Initial Ultrasound Date Last Menstrual Period Date Ultra Sound Weeks Gestation 06/29/2024 12/20/2023 11/16/2023 7 Eighteen To Twenty Week Miguel Update Ultra Sound Date Fundal Height At Umbil Quickening Date Ultra Sound Latest Weeks Gestation Final Miguel Confirmed By Final Miguel Confirmed Date Final Miguel Date Ultra Sound Latest Days Gestation 0 [email or web address] 04/26/2024 06/29/20 24 0 Pre- Flowsheet Flowsheet Date 12/20/2023 Whitten Score Blood Edema Fundus Height Fundus Units Glucose Ketones Leukocytes Nitrite Labor Signs Protein Cervic Dilation Cervic Effacement Cervic Station Type Weight in lbs Pre/Post Dialysis Refused Weight 149.257137275237 BP Diastolic BP Location Tested BP Systolic BP Type 85 L arm 124 sitting Fetus Heart Rate Present Fetus Movement Comments this patient is a 33-year-ol d 2 para 1001. She has a history of a term vaginal . She is vaccinated for COVID and the flu. She was given vaccine recommendations. We discussed care in detail. She will begin routine care. Flowsheet Date 01/19/2024 Whitten Score Blood Edema Fundus Height Fundus Units Glucose Ketones Leukocytes Nitrite Labor Signs Protein Cervic Dilation Cervic Effacement Cervic Station none 16 none trace Type Weight in lbs Pre/Post Dialysis Refused Weight 152.176859018268 BP Diastolic BP Location Tested BP Systolic BP Type 86 L arm 122 sitting Fetus Heart Rate Present A 145 Fetus Movement A Increased Comments No complaints, no problems, routine care, alpha fetoprotein today Flowsheet Date 02/23/2024 Whitten Score Blood Edema Fundus Height Fundus Units Glucose Ketones Leukocytes Nitrite Labor Signs Protein Cervic Dilation Cervic Effacement Cervic Station Type Weight in lbs Pre/Post Dialysis Refused BP Diastolic BP Location Tested BP Systolic BP Type Fetus Heart Rate Present Fetus Movement Comments Flowsheet Date 02/23/2024 Whitten Score Blood Edema Fundus Height Fundus Units Glucose Ketones Leukocytes Nitrite Labor Signs Protein Cervic Dilation Cervic Effacement Cervic Station neg none none trace Type Weight in lbs Pre/Post Dialysis Refused Weight 159.438514874248 BP Diastolic BP Location Tested BP Systolic BP Type 84 L arm 129 sitting Fetus Heart Rate Present A 152 Fetus Movement A Yes Comments no complaints, no problems, routine care, normal anatomy ultrasound today complete Flowsheet Date 03/25/2024 Whitten Score Blood Edema Fundus Height Fundus Units Glucose Ketones Leukocytes Nitrite Labor Signs Protein Cervic Dilation Cervic Effacement Cervic Station neg none 29 none trace Type Weight in lbs Pre/Post Dialysis Refused Weight 164.95359169585 BP Diastolic BP Location Tested BP Systolic BP Type 82 L arm 118 sitting Fetus Heart Rate Present A 145 Fetus Movement A Yes Comments No complaints, no problems, routine care, diabetes testing in 2 weeks Flowsheet Date 04/10/2024 Whitten Score Blood Edema Fundus Height Fundus Units Glucose Ketones Leukocytes Nitrite Labor Signs Protein Cervic Dilation Cervic Effacement Cervic Station neg none none trace Type Weight in lbs Pre/Post Dialysis Refused Weight 165.295001210824 BP Diastolic BP Location Tested BP Systolic BP Type 82 L arm 123 sitting Fetus Heart Rate Present A 145 Fetus Movement A Yes Comments no complaints, no problems, routine care Flowsheet Date 04/26/2024 Whitten Score Blood Edema Fundus Height Fundus Units Glucose Ketones Leukocytes Nitrite Labor Signs Protein Cervic Dilation Cervic Effacement Cervic Station Type Weight in lbs Pre/Post Dialysis Refused Weight 165.00702910818 BP Diastolic BP Location Tested BP Systolic BP Type 81 122 Fetus Heart Rate Present A 130 Fetus Movement A Yes Comments Doing well, baby active. No cramping or bleeding. Passed GCT, Hgb wnl. Discussed tdap vaccine. RTC 2 weeks. Flowsheet Date 05/10/2024 Whitten Score Blood Edema Fundus Height Fundus Units Glucose Ketones Leukocytes Nitrite Labor Signs Protein Cervic Dilation Cervic Effacement Cervic Station neg trace 36 Type Weight in lbs Pre/Post Dialysis Refused Weight 169.983891362878 BP Diastolic BP Location Tested BP Systolic BP Type 84 L arm 124 sitting Fetus Heart Rate Present Fetus Movement A Yes Comments We can back pain, getting fi tted for belly band no contractions, no loss of fluid, vaginal bleeding. Large for gestational aged today. Flowsheet Date 05/22/2024 Whitten Score Blood Edema Fundus Height Fundus Units Glucose Ketones Leukocytes Nitrite Labor Signs Protein Cervic Dilation Cervic Effacement Cervic Station Type Weight in lbs Pre/Post Dialysis Refused BP Diastolic BP Location Tested BP Systolic BP Type Fetus Heart Rate Present Fetus Movement Comments Flowsheet Date 05/22/2024 Whitten Score Blood Edema Fundus Height Fundus Units Glucose Ketones Leukocytes Nitrite Labor Signs Protein Cervic Dilation Cervic Effacement Cervic Station neg trace 34 Type Weight in lbs Pre/Post Dialysis Refused Weight 173.817587647283 BP Diastolic BP Location Tested BP Systolic BP Type 88 L arm 134 sitting Fetus Heart Rate Present A 145 Fetus Movement A Yes Comments no complaints, no problems, routine care, large for gestational age, possibly macrosomic Flowsheet Date 06/05/2024 Whitten Score Blood Edema Fundus Height Fundus Units Glucose Ketones Leukocytes Nitrite Labor Signs Protein Cervic Dilation Cervic Effacement Cervic Station trace none neg 1cm 80% -1 Type Weight in lbs Pre/Post Dialysis Refused Weight 175.767606414660 BP Diastolic BP Location Tested BP Systolic BP Type 86 L arm 128 sitting Fetus Heart Rate Present A 145 Fetus Movement A Yes Comments Patient c/o BH ctx, and swel ling in ankles, great exam, had very low, super thin, 1 cm Flowsheet Date 06/10/2024 Whitten Score Blood Edema Fundus Height Fundus Units Glucose Ketones Leukocytes Nitrite Labor Signs Protein Cervic Dilation Cervic Effacement Cervic Station Type Weight in lbs Pre/Post Dialysis Refused BP Diastolic BP Location Tested BP Systolic BP Type Fetus Heart Rate Present Fetus Movement Comments Flowsheet Date 06/10/2024 Whitten Score Blood Edema Fundus Height Fundus Units Glucose Ketones Leukocytes Nitrite Labor Signs Protein Cervic Dilation Cervic Effacement Cervic Station 2cm 80% -2 Type Weight in lbs Pre/Post Dialysis Refused 176.443707820840 BP Diastolic BP Location Tested BP Systolic BP Type 94 L arm 134 sitting Fetus Heart Rate Present A 147 Fetus Movement A Yes Comments increasing pressure, good fe everett movement, no contractions, no loss of fluid, no vaginal bleeding. normal growth ultrasound Menstrual History Last Menstrual Date Menses Monthly On Bcp Conception Prior Menses Frequency Hcg Plus Date Menarche Onset Age Genetic Screening And Infection History Question Response Note Mental Retardation/Autism false Patient's Age Will Be 35 Years Or Older At Estim ated Date of Delivery false Thalassemia (Liberian, Sri Lankan, Mediterranean, Or Background): MCV < 80 false Neural Tube Defect (Meningomyelocele, Spina Bifi da, Or Anencephaly) false Congenital Heart Defect false Down Syndrome false Edwardo-Sachs (eg, Orthodox, Cajun, Irish-Central African) f alse Juan Disease false Sickle Cell Disease Or Trait () false Hemophilia Or Other Blood Disorders false Muscular Dystrophy false Cystic Fibrosis false Narayan's Chorea false Intellectual Disability/Autism false If Yes, Was Person Tested For Fragile X? false Other Inherited Genetic Or Chromosomal Disorder false Maternal Metabolic Disorder (eg, Type 1 Diabetes , PKU) false Patient Or Baby's Father Had A Child With Defects Not Listed Above false Recurrent Loss, Or A Stillbirth false Medications (including Suppl ements, Vitamins, Herbs, OTC Drugs), Illicit/Recreational Drugs, Alcohol false If Yes, Agent(s) And Strength/Dosage false Any Other Genetic History false Live With Someone With TB Or Exposed To TB false Patient Or Partner Has History Of Genital Herpes false Rash Or Viral Illness Since Last Menstrual Perio d false History Of STD, Gonorrhea, Chlamydia, HPV, Syphi lis false Other Infection History false History of HIV false History of Hepatitis false Prior GBS-infected child false Hemoglobinopathy Or Carrier false Other Structural Defect false Recent Travel History Outside of Country false Delivery Information Delivery Date Delivery Type Labor Anesthesia Weeks Gestation Incision Type Labor Labor Length Hrs Delivered By Post Complications Tubal Sterilization Discharge Date Comments lily None 37.6 false Kojo Saldana MD Large for gestation age fetus Discharge Information Feeding Method Contraceptive Method Maternal HG B and HCT Levels
--- NOTE | 2025-04-26 08:10 | ED_ITS ---
HPI - URI/Sore Throat General Chief Complaint: Upper Respiratory Infection Stated Complaint: cough Time Seen by Provider: 04/26/25 08:10 Source: patient Mode of arrival: ambulatory Limitations: no limitations History of Present Illness HPI Narrative: Patient is a 34-year-old female who presents with 5 days of persistent cough. Denies any congestion, sore throat, fever, chills, nausea, vomiting, diarrhea. Has tried DayQuil and NyQuil with no relief. Patient states she was not able to sleep last night to the burning in her chest. Son has recently been treated for ear infections Related Data Home Medications ?Medication ?Instructions ?Recorded ?Confirmed ?Last Taken ?Type prenat.vits,amanda,[id number] 1 tablet 06/10/24 06/13/24 21:00 History escitalopram oxalate 20 mg tablet mg 04/26/25 Unknown History lamotrigine 25 mg tablet mg 04/26/25 Unknown History medroxyprogesterone 150 mg/mL mg IM 04/26/25 Unknown History intramuscular syringe Allergies Allergy/AdvReac Type Severity Reaction Status Date / Time No Known Allergies Allergy Verified 04/26/25 08:08 Review of Systems Review of Systems: All systems reviewed & are unremarkable except as noted in HPI and below Constitutional: Constitutional: Denies chills, Denies fatigue, Denies fever(s), Denies headache(s), Denies malaise and Denies weakness Eyes: Eyes: Denies blurry vision, Denies itchy eyes and Denies loss of vision ENT: Denies otalgia, Denies headache(s), Denies nasal congestion, Denies sinus pain and Denies sore throat Cardiovascular: Cardiovascular: Denies chest pain, Denies irregular heart rhythm and Denies dyspnea Respiratory: Respiratory: Reports cough and Denies dyspnea Gastrointestinal: Gastrointestinal: Denies abdominal pain, Denies diarrhea, Denies nausea and Denies vomiting Musculoskeletal: Musculoskeletal: Denies back pain, Denies myalgias and Denies arthralgias Integumentary/Breasts: Skin/Breast: Denies pruritus and Denies rash Neurologic: Denies headache(s), Denies loss of vision and Denies weakness Psychiatric: Psychiatric: Reports no additional psychiatric complaints Endocrine: Endocrine: Denies fatigue Allergic/Immunologic: Allergic/Immunologic: Denies itchy eyes PMFSH Family History Family History Mother Liver cancer Social History Social History Smoking status: Never smoker Second hand tobacco smoke exposure: No Substance use: never Do You Feel Safe in your Home?: Yes Lack of Transportation: No Lack of Food: Never True Current Housing: I Have Housing Concerned About Future Housing: No Difficulty Paying Gas/Electric Bills: No Difficulty Paying for Meds: No Currently Unemployed: No Education: High School Diploma/GED Difficulty w/ Childcare or Family Care: No Spiritual care concerns: No Comments At time of signature, agree with nursing past medical, surgical, social and family history. There is no relevant family history pertinent to the presenting complaint. Exam Const: General: cooperative, healthy appearing, comfortable, no acute distress and well nourished Nutritional Appearance: well nourished Orientation/consciousness: patient oriented x3 Limitations: no limitations HENMT: Head: normal to inspection, normocephalic and atraumatic Ears: hearing grossly normal bilaterally, external ears normal, TM's normal bilaterally, EAC's normal and no periauricular adenopathy Face/Nose/Sinus: Normal external nose present, Normal nasal mucous membranes and turbinates present, normal facial exam, sinuses nontender and face symmetric Face and sinus: normal facial exam, sinuses nontender and face symmetric Mouth: Yes Normal oral and palatal mucosa present, Yes lip normal, Yes tongue normal, Yes Normal salivary glands and ducts present, Yes oropharynx normal and Yes moist mucous membranes Teeth and gingiva: dentition normal Throat: posterior oropharynx normal, tonsils normal and uvula midline Eyes: General: appearance normal, both eyes and all related structures Alignment and Position: alignment normal and position normal Periorbital: periorbital findings normal Eyelids: eyelids normal Pupils: Equal, round and reactive pupils present Neck: Neck: normal visual inspection, full ROM, no lymphadenopathy and supple Chest: Chest palpation & inspection: normal inspection of the chest and normal palpation of entire chest wall Resp: Effort & Inspection: normal respiratory effort and able to speak in complete sentences Auscultation: crackles on the right in the mid lung moon and in the lower lung moon, no rales, no rhonchi and no wheezes Cardio: Rate: regular rate Rhythm: regular rhythm Heart sounds: S1 normal heart sound present and S2 normal heart sound present GI: Inspection: normal to inspection Back/Spine/Pelvis: Thoracic/Lumbar Spine: Thoracic/lumbar scoliosis Skin: General skin exam: normal color and no rashes or lesions noted Neuro: General: patient oriented x3 and moves all extremities Cranial nerves: Yes Equal, round and reactive pupils present Speech: normal speech Gait exam (Neuro): Normal gait present Extrem: General: normal to inspection, full ROM and no edema Psych: Appearance: grossly normal and well kempt Mental Status: mental status grossly normal Speech and movement: Normal speech and movement present Affect: normal affect Attitude: cooperative Thought process: Normal thought process present Course Course Emergency Course: Discharge instructions reviewed with patient, as well as provided in writing per nursing staff. The instructions also include specific and strict return/GO TO THE ER as well as f/u information. All questions have been answered, and the patient deny any further questions with discharge and discharge plan. Portions of this record may have been created with voice recognition software Level of Care: Express Care Visit Vital Signs Vital signs: Vital Signs Temperature 36.7 C 04/26/25 08:15 Pulse Rate 100 04/26/25 08:15 Respiratory Rate 18 04/26/25 08:15 Blood Pressure 129/89 04/26/25 08:15 Pulse Oximetry 99 04/26/25 08:15 Oxygen Delivery Room Air 04/26/25 08:15 Temperature 36.7 C 04/26/25 08:15 Pulse Rate 100 04/26/25 08:15 Respiratory Rate 18 04/26/25 08:15 Blood Pressure 129/89 04/26/25 08:15 Pulse Oximetry 99 04/26/25 08:15 Oxygen Delivery Room Air 04/26/25 08:15 Reviewed MDM - URI/Sore Throat MDM Narrative Medical decision making narrative: Pt well hydrated appearing, in no respiratory distress, hemodynamically stable. Recommend supportive care. The patient is stable at time of discharge the clinical impression was discussed and the patient was given the opportunity to ask questions, which were addressed as completely as possible given the information available at present. Anticipatory guidance and return to care precautions were discussed and the importance of primary care follow-up was stressed and encouraged. The patient voiced understanding of the plan, indications to return, and the need for follow-up. Exam findings show no acute concerns or changes Patient is appropriate for outpatient treatment and follow-up. Differential diagnosis considered: pneumonia, Ferguson virus, strep pharyngitis, allergic rhinitis, upper respiratory tract infection, sinusitis, rhinosinusitis, nasopharyngitis. viral pharyngitis, otitis media, otitis externa, otitis effusion, foreign body, cerumen impaction, viral syndrome, and influenza.? Medical Records Attestation: I reviewed the patient's medical records. Lab Data Attestation: I reviewed the patient's lab results. Labs: Lab Results 04/26/25 Range/Units 08:29 POC SARS CoV-2 Ag Negative (Negative) Imaging Data Radiologist's impression: XR chest 2V 04/26/2025 08:46 Indication: Cough Procedure: 2 view chest Comparison: No prior studies for comparison. Findings: There is significant thoracic dextroscoliosis. There is right basilar airspace disease, compatible with pneumonia. Heart size normal. No significant effusion, edema or pneumothorax. Impression: 1: Right basilar airspace disease, compatible with pneumonia. 2: Scoliosis. Discharge Plan Discharge Clinical Impression: Pneumonia Qualifiers: Pneumonia type: due to unspecified organism Laterality: right Lung location: lower lobe of lung Qualified Code(s): J18.9 - Pneumonia, unspecified organism Scoliosis Qualifiers: Scoliosis type: unspecified scoliosis Spinal region: thoracic Qualified Code(s): M41.9 - Scoliosis, unspecified Patient Disposition: Home Condition: Stable Instructions: Community Acquired Pneumonia (ED) Additional Instructions: Take antibiotic as prescribed. Take steroids in the morning with food. Use Tessalon Perles as needed for cough. Use inhaler with spacer as needed. Other symptomatic treatments include: -Alternate Tylenol and Motrin per package directions for fever or pain: Tylenol 650-1000mg by mouth every 4-6 hours. Do not exceed 4000mg in 24 hours. Advil (Ibuprofen) 600 mg by mouth every 6 hours. Do not exceed 2400mg in 24 hours. 8 AM: Tylenol 11 AM: Ibuprofen 2 PM: Tylenol 5 PM: Ibuprofen 8 PM: Tylenol 11 PM: Ibuprofen 2 AM: Tylenol 5 AM: Ibuprofen -Antihistamine medication such as Benadryl at night and Zyrtec/Claritin/Yumi during the day can help improve symptoms. -Use Flonase twice a day for 5 days then daily to help reduce the inflammation and dry up your sinuses. -You can also use Sudafed or Mucinex. Be sure to drink plenty of water with these medications at least 8 ounces with every dose and it is important to drink 8 to 10 glasses of water per day. Water is a natural decongestant -Eat and drink things that are easy to swallow, like tea or soup, or popsicles. -Oral rinses such as: Salt water gargles and/or may use topical anesthetic (eg. Chloraseptic spray) or lozenges to relieve dryness or throat pain). -Frequent hand washing or hand log skidder is one of the best ways to prevent spread of infection. -Using a vaporizer or humidifier at night will also help thin secretions and help with coughing up phlegm. Call your Primary Care Doctor and make a follow-up appointment in 3 days. If your cough worsens, you develop a fever greater than 103, you develop shaking chills, a fast heartbeat, trouble breathing and/or feel you are are breathing much faster than usual, call your Primary Care Doctor or go to the ER. Patient Language: Tajik Prescriptions: New benzonatate 100 mg capsule 100 mg PO BID PRN (Reason: cough) Qty: 14 0RF albuterol sulfate 90 mcg/actuation HFA aerosol inhaler 2 puff inhalation QID PRN (Reason: shortness of breath or wheezing) Qty: 6.7 0RF (DME) Aerochamber MV Spacer See Rx Instructions .Route Qty: 1 0RF Rx Instructions: As directed prednisone 20 mg tablet 40 mg PO DAILY 5 Days Qty: 10 0RF doxycycline monohydrate 100 mg tablet 100 mg PO BID 7 Days Qty: 14 0RF No Action lamotrigine 25 mg tablet medroxyprogesterone 150 mg/mL syringe IM escitalopram oxalate 20 mg tablet prenat.vits,amanda,[id number] Tablet 1 tablet Follow-up/Referrals: PHYSICIAN,URANIUM PROCESSING SUPERVISOR [Primary Care Provider] - Jeffery Moore MD [Physician] - 3 Days (Establish care) Stand Alone Forms: Work/School Release IP Time of Disposition: 08:57
[2025-04-26 08:15] VITALS: BP 129/89; PULSE 100; RESP 18; TEMP 36.7; O2SAT 99
[2025-04-26 08:31] LABS: EDCOVIDSCREEN Negative (Negative)
== END 2025-04-26 08:59 | disposition home or self-care (01) ==
PROVIDERS: Emergency Provider Nurse Practitioner Family
DX: J18.9 Pneumonia, unspecified organism (principal); M41.9 Scoliosis, unspecified; Z20.822 Contact with and (suspected) exposure to COVID-19
CPT/HCPCS: 71046; 87426; 99213; G0463